=== PATIENT | female | born 1995 | race Caucasian/White ===

== ENCOUNTER → 2017-11-15 | Outpatient (CLI) | payer BC | LOC: LAB 11:59 → LAB SHORT 11:59 | PROVIDERS: Registered Nurse Community Health | DX: Z12.4 Encounter for screening for malignant neoplasm of cervix (principal) | CPT/HCPCS: G0123 ==

== ENCOUNTER 2018-02-15 13:03 | Day surgery (SDC) | payer BC ==
[~2018-02-15] VITALS: Ht 170.2 cm; Wt 71.6 kg
[~2018-02-15 13:03] MED LIST: APRI1 EACH PO; IBUP400 PO
== END 2018-02-15 16:45 | disposition home or self-care (01) ==
LOC: ORSCSDS 13:03
PROVIDERS: Obstetrics & Gynecology
PROC: 0UT74ZZ Resection of Bilateral Fallopian Tubes, Percutaneous Endoscopic Approach (ICD-10-PCS; principal; 2018-02-15 14:30)
DX: Z30.2 Encounter for sterilization (principal)
CPT/HCPCS: 88302; J0690; J1100; J2250; J2405; J2710; J3010; J7120

== ENCOUNTER 2020-11-04 12:09 | Day surgery (SDC) | payer OTHER ==
[2020-11-02 15:26] LABS: BASOPHILS ABSOLUTE AUTO 0.02 K/mm3 (0.00-0.23); BASOPHILS PERCENT AUTO 0 % (0-2); EOSINOPHILS ABSOLUTE AUTO 0.14 K/mm3 (0.00-0.68); EOSINOPHILS PERCENT AUTO 2 % (0-6); Hematocrit 42.3 % (33.0-51.0); Hemoglobin 13.8 g/dL (11.5-16.0); IMMATURE GRAN ABSOLUTE AUTO 0.02 K/mm3 (0.00-0.10); IMMATURE GRAN PERCENT AUTO 0 % (0-1); LYMPHOCYTES ABSOLUTE AUTO 1.33 K/mm3 (0.84-5.20); LYMPHOCYTES PERCENT AUTO 23 % (21-46); MONOCYTES ABSOLUTE AUTO 0.32 K/mm3 (0.16-1.47); MONOCYTES PERCENT AUTO 6 % (4-13); Mean Corpuscular HGB 27.8 pg (26.0-34.0); Mean Corpuscular HGB Conc 32.6 g/dL (31.5-36.5); Mean Corpuscular Volume 85 fL (80-100); Mean Platelet Volume 11.4 fL (9.1-12.4); NEUTROPHILS ABSOLUTE AUTO 3.97 K/mm3 (1.96-9.15); NEUTROPHILS PERCENT AUTO 69 % (41-73); Platelet Count 215 K/mm3 (150-400); RDW Coefficient Variation 12.8 % (11.7-14.2); RDW Standard Deviation 39.2 fL (35.1-46.3); Red Blood Cell Count 4.97 M/mm3 (3.80-5.20)
[2020-11-02 16:19] LABS: Anion Gap 6 mmol/L (6-16); Blood Urea Nitrogen 9 mg/dL (8-24); Bun/Creatinine Ratio 13.1 (12.0-20.0); CO2, Blood 28 mmol/L (21-32); Chloride, Blood 105 mmol/L (98-108); Creatinine, Blood 0.69 mg/dL (0.40-1.00); Glomerular Filtration Rate >60 (60-); Glucose, Blood 93 mg/dL (70-99); Potassium, Blood 3.7 mmol/L (3.5-5.5); Sodium, Blood 139 mmol/L (136-145)
[~2020-11-04] VITALS: Ht 170.2 cm; Wt 80.0 kg
[2020-11-04] MEDS ORDERED: BUSP5 PO (12:31)
--- NOTE | 2020-11-04 13:09 | NUR ---
Ambulatory in Day Surgery History, Chart, Medications and Allergies reviewed before start of procedure.Patient confirms NPO status and agrees with scheduled surgery. Patient reports completing Chlorhexadine shower X2 prior to admission to hospital.Surgical site prepped with 2% Chlorhexidine cloth wipe. Lungs clear T/O to Auscultation.
--- NOTE | 2020-11-04 13:21 | NUR ---
REPORT GIVEN TO TEJAS HAMM
--- NOTE | 2020-11-04 17:50 | NUR ---
pt transported to room on own bed, PAS in place, polk catheter patent draining clear yellow urine. Post op commenced and stable. pt a/o x 4, pleasant/cooperative. lap sites x 4, robotic site x 2 c/d/ with dermabond, gauze covering one site LLQ. pt provided with PO fluids, oriented to room/call light. K-pad provided. pt's in room.
[2020-11-05 04:34] LABS: BASOPHILS ABSOLUTE AUTO 0.03 K/mm3 (0.00-0.23); BASOPHILS PERCENT AUTO 0 % (0-2); EOSINOPHILS ABSOLUTE AUTO 0.01 K/mm3 (0.00-0.68); EOSINOPHILS PERCENT AUTO 0 % (0-6); Hematocrit 38.5 % (33.0-51.0); Hemoglobin 12.8 g/dL (11.5-16.0); IMMATURE GRAN ABSOLUTE AUTO 0.08 K/mm3 (0.00-0.10); IMMATURE GRAN PERCENT AUTO 1 % (0-1); LYMPHOCYTES ABSOLUTE AUTO 0.92 K/mm3 (0.84-5.20); LYMPHOCYTES PERCENT AUTO 8 % (21-46); MONOCYTES ABSOLUTE AUTO 0.87 K/mm3 (0.16-1.47); MONOCYTES PERCENT AUTO 7 % (4-13); Mean Corpuscular HGB 27.9 pg (26.0-34.0); Mean Corpuscular HGB Conc 33.2 g/dL (31.5-36.5); Mean Corpuscular Volume 84 fL (80-100); NEUTROPHILS ABSOLUTE AUTO 9.97 K/mm3 (1.96-9.15); NEUTROPHILS PERCENT AUTO 84 % (41-73); RDW Coefficient Variation 12.8 % (11.7-14.2); RDW Standard Deviation 39.2 fL (35.1-46.3); Red Blood Cell Count 4.58 M/mm3 (3.80-5.20); White Blood Cell Count 11.88 K/mm3 (4.00-11.30)
[2020-11-05 04:35] LABS: Mean Platelet Volume 11.6 fL (9.1-12.4); Platelet Count 169 K/mm3 (150-400)
--- NOTE | 2020-11-05 06:33 | NUR ---
SHIFT SUMMARY POD 1 TOTAL ROBOTIC LAP HYSTER, A/O X4, VSS, TOLERATING PO, AMBULATED IN THE HALLS TWICE BEFORE MIDNIGHT, PAIN WELL MANAGED PER EMAR, ROSAS REMOVED PER PT REQUEST, PT ABLE TO VOID AFTER REMOVAL, NO ACUTE EVENTS THIS SHIFT. CALL LIGHT IN REACH, WILL CTM AND REPORT TO ONCOMING DAY RN.
[2020-11-05] MEDS ORDERED: DULCOLAX400 MG/5 M PO (12:36)
[2020-11-05] MEDS ORDERED: SENN187 PO (12:36)
[2020-11-05] MEDS ORDERED: DOCU100 PO (12:36)
[2020-11-05] MEDS ORDERED: PROM25 PO (12:37)
[2020-11-05] MEDS ORDERED: SIME80CH PO (12:37)
[2020-11-05] MEDS ORDERED: HYDR1TAB94 PO (12:38)
--- NOTE | 2020-11-05 12:49 | NUR ---
DISCHARGE PT EDUCATED ON AND RECEIVED PRINTED DISCHARGE INSTRUCTIONS AND VERB AN UNDERSTANDING. HARD RX + ABD BINDER GIVEN TO PT. KYLE OJEDA'Hali. PT DRESSED WITH PERSONAL BELONGINGS AND WAITING FOR HER RIDE HOME.
== END 2020-11-05 13:14 | disposition home or self-care (01) ==
LOC: ORSCMMR 12:09 → ORD 14:15 → SURS 18:15 → ORSCMMR 11-05 13:14
PROVIDERS: Obstetrics & Gynecology
PROC: 0U5F4ZZ Destruction of Cul-de-sac, Percutaneous Endoscopic Approach (ICD-10-PCS; principal; 2020-11-04 14:15)
PROC: 0UT94ZZ Resection of Uterus, Percutaneous Endoscopic Approach (ICD-10-PCS; principal; 2020-11-04 14:15)
PROC: 0UT74ZZ Resection of Bilateral Fallopian Tubes, Percutaneous Endoscopic Approach (ICD-10-PCS; principal; 2020-11-04 14:15)
PROC: 8E0W4CZ Robotic Assisted Procedure of Trunk Region, Percutaneous Endoscopic Approach (ICD-10-PCS; principal; 2020-11-04 14:15)
DX: N92.0 Excessive and frequent menstruation with regular cycle (principal); N80.3 Endometriosis of pelvic peritoneum; N94.6 Dysmenorrhea, unspecified; N94.10 Unspecified dyspareunia
CPT/HCPCS: 58571; 58662; S2900; 36415; 80048; 85025; 86850; 86900; 86901; 88305; 88307; A9270; J0690; J1100; J2250; J2405; J2704; J3010; J7120

== ENCOUNTER → 2021-07-25 | Outpatient (CLI) | payer OTHER ==
[~2021-07-25] MED LIST changes: +BUSP5 PO; +DOCU100 PO; +DULCOLAX400 MG/5 M PO; +HYDR1TAB94 PO; +PROM25 PO; +SENN187 PO; +SIME80CH PO
== END | disposition home or self-care (01) ==
LOC: LAB SHORT 08:45
DX: N39.0 Urinary tract infection, site not specified (principal)
CPT/HCPCS: 87077; 87086; 87186

== ENCOUNTER 2021-10-08 13:23 | Emergency (ER) | payer OTHER ==
[~2021-10-08] VITALS: Ht 170.2 cm; Wt 81.2 kg
[2021-10-08] MEDS ORDERED: BENZ100A PO (14:50)
== END 2021-10-08 15:03 | disposition home or self-care (01) ==
LOC: ER 13:23
DX: B34.9 Viral infection, unspecified (principal); Z88.2 Allergy status to sulfonamides; Z88.1 Allergy status to other antibiotic agents; F17.200 Nicotine dependence, unspecified, uncomplicated
CPT/HCPCS: 99282

== ENCOUNTER → 2022-06-19 | Outpatient (CLI) | payer OTHER ==
[~2022-06-19] MED LIST changes: +BENZ100A PO
[2022-06-22 07:13] LABS: COTININE Negative ng/mL (Cutoff=300)
== END | disposition home or self-care (01) ==
LOC: LAB SHORT 08:19 → LAB 08:19
PROVIDERS: Physician Assistant
DX: F17.200 Nicotine dependence, unspecified, uncomplicated (principal)

== ENCOUNTER → 2023-04-16 | Outpatient (CLI) | payer OTHER | LOC: LAB SHORT 18:58 | DX: N39.0 Urinary tract infection, site not specified (principal) | CPT/HCPCS: 87077; 87086; 87186 ==

== ENCOUNTER → 2024-02-09 | Outpatient (CLI) | payer OTHER | END | disposition home or self-care (01) | LOC: LAB 16:30 → LAB SHORT 16:30 | DX: N39.0 Urinary tract infection, site not specified (principal) | CPT/HCPCS: 87077; 87086; 87186 ==

== ENCOUNTER 2024-06-27 23:20 | Emergency (ER) | payer OTHER ==
[~2024-06-27] VITALS: Ht 170.2 cm; Wt 88.5 kg
[2024-06-28 00:22] LABS: Source, Urine Clean Catch
[2024-06-28 00:24] LABS: Bilirubin, Urine Neg (Neg); Blood, Urine Neg (Neg); Glucose Qualitative, Urine Neg (Neg); Ketones, Urine Neg (Neg); Leukocyte Esterase, Urine Neg (Neg); Nitrite, Urine Neg (Neg); Protein, Urine Neg (Neg); Specific Gravity, Urine 1.025 (1.003-1.022); Urobilinogen, Urine NORM (Normal)
[2024-06-28 00:28] LABS: Appearance, Urine Clear (Clear); Color, Urine Yellow (P-Yellow)
[2024-06-28] MEDS ORDERED: Acetaminophen 500 MG Tab PO ONE (01:40)
[2024-06-28] MEDS ORDERED: Ibuprofen 600 MG Tab PO ONE (01:40)
[2024-06-28 01:45] VITALS: BP 119/73
== END 2024-06-28 03:18 | disposition home or self-care (01) ==
LOC: ER 23:20
PROVIDERS: Emergency Medicine
DX: N94.10 Unspecified dyspareunia (principal); F17.200 Nicotine dependence, unspecified, uncomplicated; Z79.899 Other long term (current) drug therapy; Z88.1 Allergy status to other antibiotic agents
CPT/HCPCS: 81003; 99284; A9270